=== PATIENT | male | born 1955 | race Caucasian/White ===

== ENCOUNTER → 2019-12-29 14:32 | Outpatient (CLI) | payer BC, SELFPAY ==
--- NOTE | 2019-12-29 14:47 | CT_ITS ---
STUDY: CT ABDOMEN AND PELVIS WITHOUT CONTRAST REASON FOR EXAM: Male, 64 years old. GROSS HEMATURIA, GROIN PAIN X DAYS, DB, HTN RADIATION DOSAGE (If Supplied By Facility): CTDIvol = ( 13.23 ) mGy, DLP = ( 743.7 ) mGycm TECHNIQUE: Transaxial images were obtained from the dome of the diaphragm to the symphysis pubis without oral contrast, and without intravenous contrast. Sagittal and coronal images were reconstructed. Individualized dose optimization techniques were used for this CT. COMPARISON: None. FINDINGS: The visualized lung bases are unremarkable. The visualized portions of the heart are within normal limits. Normal liver. Normal gallbladder and extrahepatic biliary system. Normal spleen. Normal pancreas. Normal bilateral adrenal glands. Normal right kidney. Normal left kidney. There is a small hiatal hernia. Normal small intestine. Normal colon. The appendix is visualized and appears normal. Normal abdominal aorta. Normal inferior vena cava. There is borderline retroperitoneal lymphadenopathy with enlarged nodes no greater than 10mm in the short axis diameter. Normal urinary bladder. There is enlargement of the prostate gland. It measures 5.6 times by 4.7 cm. This causes indentation at the bladder base. Prostatic calcification more prominent in the posterior aspect of the right lobe of the prostate. There is a small umbilical hernia containing fat. Normal osseous structures. CT/Abdomen/Pelvis without Cont IMPRESSION: Prostatic enlargement with indentation at the bladder base. Prostatic calcifications. Electronically Signed: Gumaro Oh, at 15:16 EST , Service support ,
== END ==
PROVIDERS: Referring Provider Urology; Visit Provider Urology
DX: R31.0 Gross hematuria (principal); N39.0 Urinary tract infection, site not specified
CPT/HCPCS: 74176; 87086; 87088; 87186